=== PATIENT | female | born 1950 | race Caucasian/White ===

== ENCOUNTER 2018-09-22 09:49 | Day surgery (SDC) | payer OTHER ==
[2018-09-19 14:41] LABS: BASOPHILS % (AUTO) 0.3 % (0-1); EOSINOPHILS # (AUTO) 0.2 X10'3 (0-0.9); EOSINOPHILS % (AUTO) 3.1 % (0-6); LYMPHOCYTES # (AUTO) 1.5 X10'3 (1.1-4.8); MEAN CORPUSCULAR HEMOGLOBIN 31.2 PG (27.0-31.0); MEAN CORPUSCULAR HGB CONC 33.8 % (33.0-36.5); MEAN CORPUSCULAR VOLUME 92.3 FL (78-98); MEAN PLATELET VOLUME 9.6 FL (7.4-10.4); MONOCYTES # (AUTO) 0.5 X10'3 (0-0.9); MONOCYTES % (AUTO) 8.9 % (2-12); NEUTROPHILS # (AUTO) 2.9 X10'3 (1.8-7.7); NEUTROPHILS % (AUTO) 57.7 % (42-75); PRE OP HEMATOCRIT 42.3 % (35.0-45.0); PRE OP HEMOGLOBIN 14.3 g/dL (12.0-16.0); PRE OP PLATELET COUNT 217 X10'3 (140-440); RED BLOOD COUNT 4.59 X10'6 (4.20-5.60); RED CELL DISTRIBUTION WIDTH 12.4 % (11.5-14.5)
[2018-09-19 14:58] LABS: ALBUMIN 3.4 G/DL (3.4-5.0); ALBUMIN/GLOBULIN RATIO 0.8 (1.1-1.5); ALKALINE PHOSPHATASE 74 IU/L (46-116); BLOOD UREA NITROGEN 20 MG/DL (7-18); BUN/CREATININE RATIO 17.5 (6.6-38.0); CALCIUM 9.2 MG/DL (8.5-10.1); CHLORIDE 103 MMOL/L (99-107); CREATININE 1.14 MG/DL (0.40-0.90); PRE OP ALT 26 U/L (30-65); PRE OP ANION GAP 12 (8-16); PRE OP AST 18 U/L (10-37); PRE OP BILIRUB, TOTAL 0.3 MG/DL (0.0-1.0); PRE OP GLUCOSE 92 MG/DL (70-104); PRE OP SODIUM 140 MMOL/L (135-145); TOTAL CARBON DIOXIDE 24.6 MMOL/L (24-32); TOTAL PROTEIN 7.6 G/DL (6.4-8.2); eGFR 47 ML/MIN
[2018-09-19 15:05] LABS: PRE OP POTASSIUM 3.2 MMOL/L (3.4-5.1)
[~2018-09-22] VITALS: Ht 162.6 cm; Wt 93.0 kg
[2018-09-22] VITALS (8 sets, daily range): BP systolic 117–133; BP diastolic 70–78
[~2018-09-22 09:49] MED LIST: ACYC-202 PO; DOCU-28 PO; HYDR25TA4 PO; IBUP-1984 PO; LEVO75TA PO; LISI40TA4 PO; OMEG1CAP13; SIMV20TA5 PO; famotidine 20mg tablet PO ONE; ringers solution, lacted 1,000 ML IV SCH
[2018-09-22 12:06] LABS: ISTAT CREATININE 0.9 mg/dL (0.6-1.1); ISTAT HGB 12.2 g/dl (12.0-16.0); ISTAT IONIZED CALCIUM 1.26 mmol/L (1.03-1.32); ISTAT K 3.5 mmol/L (3.5-5.1)
[2018-09-22] MEDS ORDERED: oxyCODONE/APAP 5-325mg tablet PO ONE ×2 (12:15)
[2018-09-22] MEDS ORDERED: ondansetron/PF 4mg/2ml inj ONE (13:21)
[2018-09-22] MEDS ORDERED: sevoflurane 250ml liquid IH ONE (13:21)
[2018-09-22] MEDS ORDERED: fentaNYL/PF 50MCG/1 ML 2ML syringe ONE (13:22)
[2018-09-22] MEDS ORDERED: midazolam 2 mg/2 ml injection ONE (13:22)
[2018-09-22] MEDS ORDERED: propofol inj 20 ML IV ONE (13:23)
[2018-09-22] MEDS ORDERED: dexamethasone sod phosphate 4mg/ml inj. ONE (13:23)
[2018-09-22] MEDS ORDERED: LIDOcaine 2% (20mg/ml) 5ml vial ONE (13:23)
[2018-09-22] MEDS ORDERED: ringers solution, lacted 1,000 ML IV SCH (13:57)
[2018-09-22] MEDS ORDERED: ondansetron/PF 4mg/2ml inj IV PRN (14:00)
[2018-09-22] MEDS ORDERED: morphine 4 MG/ML inj SYRINge IV PRN ×2 (14:00)
[2018-09-22] MEDS ORDERED: proCHLORperazine 10 MG/2 ml inj IV PRN (14:00)
[2018-09-22] MEDS ORDERED: meperidine/PF 25mg/ml syringe IV PRN ×3 (14:00)
== END 2018-09-22 14:55 | disposition home or self-care (01) ==
LOC: PAS 09:49
PROVIDERS: ATTEND Obstetrics & Gynecology
DX: N84.0 Polyp of corpus uteri (principal); N95.0 Postmenopausal bleeding; F41.8 Other specified anxiety disorders; M19.90 Unspecified osteoarthritis, unspecified site; E78.00 Pure hypercholesterolemia, unspecified; I12.9 Hypertensive chronic kidney disease with stage 1 through stage 4 chronic kidney disease, or unspecified chronic kidney disease; N18.3 Chronic kidney disease, stage 3 (moderate); E66.9 Obesity, unspecified; G47.33 Obstructive sleep apnea (adult) (pediatric); E03.9 Hypothyroidism, unspecified; Z79.1 Long term (current) use of non-steroidal anti-inflammatories (NSAID); Z98.51 Tubal ligation status; Z87.891 Personal history of nicotine dependence; Z88.2 Allergy status to sulfonamides; Z68.35 Body mass index [BMI] 35.0-35.9, adult; Z79.899 Other long term (current) drug therapy; Z88.8 Allergy status to other drugs, medicaments and biological substances; Z98.890 Other specified postprocedural states
CPT/HCPCS: 36415; 58558; 80047; 80053; 85025; 93005; A4355; A6255; J1100; J2001; J2250; J2405; J2704; J3010; J7030; J7120